=== PATIENT | female | born 1955 | race African-American/Black ===

== ENCOUNTER 2017-03-22 08:13 | Inpatient (IN) ==
[2017-03-22] MEDS ORDERED: ONDANSETRON 4 MG/2 ML VIAL IV STA (08:38)
[2017-03-22] MEDS ORDERED: HYDROmorphone 2 MG/1 ML VIAL IV STA (08:38)
[2017-03-22] MEDS ORDERED: ONDANSETRON 4 MG/2 ML VIAL ONE (08:48)
[2017-03-22] MEDS ORDERED: HYDROmorphone 2 MG/1 ML VIAL ONE (08:48)
[2017-03-22 09:26] LABS: Basophils # 0.1 10*3/uL (0.0-0.2); Basophils % 0.8 % (0.0-0.8); Eosinophils # 0.1 10*3/uL (0.0-0.87); Eosinophils % 0.8 % (0.00-10.9); Hematocrit 33.3 VOL% (35.7-47.0); Hemoglobin 11.4 GM/DL (12.0-16.0); Immature Granulocytes % 0.3 %; Immature Granulocytes Absolute 0.02 #; Lymphocytes # 0.8 10*3/uL (1.4-4.0); Lymphocytes % 12.9 % (21.3-54.2); Mean Corpuscular HGB Conc 34.2 GM/DL (32-36); Mean Corpuscular Hemoglobin 28 PG (27-34); Monocytes # 0.4 10*3/uL (0.11-0.8); Monocytes % 7.2 % (1.7-12.7); Neutrophils # 4.8 10*3/uL (1.4-7.4); Platelet Count 246 T/CUMM (130-400); Red Blood Count 4.01 MC/CUMM (3.8-5.5); Red Cell Distribution Width 15.6 % (9.3-17.3); White Blood Count 6.1 T/CUMM (4-12)
[2017-03-22 09:43] LABS: Lactic Acid 1.3 MMOL/L (0.4-2.0)
[2017-03-22 09:48] LABS: Apearance,Urine CLOUDY (Clear); Bacteria,Urine Occasional /HPF (Few); Bilirubin,Urine Negative (Negative); Blood, Urine Moderate mg/dL (Negative); Glucose,Urine (UA) 50 mg/dL (Negative); Ketones,Urine 5 mg/dL (Negative); Mucus,Urine Occasional /LPF (Occasional); Nitrite,Urine Negative (Negative); Protein,Urine >=500 MG/DL; RBC,Urine 25842 /HPF (0-4); Squamous Epithelial Cell,Urine Occasional /HPF (0-10); Urine Color Red (Yellow); Urine Specific Gravity 1.014 (1.001-1.035); Urine Urobilinogen < 2.0 EU/DL (0.2-1.0); WBC,Urine 133 /HPF (0-6)
[2017-03-22 10:01] LABS: Albumin 3.5 G/DL (3.4-5.0); Bilirubin,Total 0.4 MG/DL (0.2-1.0); Calcium 8.9 MG/DL (8.5-10.1); Osmolality,Calculated 280.5 MOS/KG (273-304); Potassium 3.5 MMOL/L (3.5-5.1); Total Protein 7.8 G/DL (6.4-8.3)
[2017-03-22] MEDS ORDERED: MORPHINE 2 MG/1 ML SYRINGE IV PRN (12:08)
[2017-03-22] MEDS ORDERED: ONDANSETRON 4 MG/2 ML VIAL IV PRN (12:08)
[2017-03-22] MEDS ORDERED: diphenhydrAMINE CAP 25 MG CAPSULE PO PRN (12:08)
[2017-03-22] MEDS ORDERED: DOCUSATE SODIUM 100 MG CAPSULE PO PRN (12:08)
[2017-03-22] MEDS ORDERED: PROMETHAZINE 25 MG/1 ML VIAL IM PRN (12:08)
[2017-03-22] MEDS ORDERED: guaiFENesin/DM ER 600-30 MG TABLET PO PRN (12:08)
[2017-03-22] MEDS ORDERED: ACETAMINOPHEN 325 MG TABLET PO PRN ×2 (12:08)
[2017-03-22] MEDS ORDERED: ALBUTEROL 0.63 MG/3 ML NEB RESP TX PRN (13:31)
[2017-03-22] MEDS: SODIUM CHLORIDE 0.9% 1,000 ML IV SCH ×2 (13:46→21:53)
[2017-03-22] MEDS: cefTRIAXone 1,000 MG in SYRINGE 1 EACH IV SCH (13:49)
[2017-03-22] MEDS: PANTOPRAZOLE 40 MG TABLET PO SCH (13:49)
[2017-03-22] MEDS: guaiFENesin/DM ER 600-30 MG TABLET PO SCH ×2 (13:49→21:24)
[2017-03-22 15:01] LABS: Hematocrit 31.9 VOL% (35.7-47.0); Hemoglobin 10.8 GM/DL (12.0-16.0)
[2017-03-22 16:56] LABS: Cancer Antigen 19-9 4.8 U/ML (0-37); Carcinoembryonic Antigen < 0.5 NG/ML (0.0-5.0)
[2017-03-22 19:20] LABS: Hematocrit 29.3 VOL% (35.7-47.0); Hemoglobin 10.1 GM/DL (12.0-16.0)
[2017-03-22] MEDS: BELLADONNA/OPIUM 30 MG SUPP RECTAL SCH (21:24)
[2017-03-23] MEDS: SODIUM CHLORIDE 0.9% 1,000 ML IV SCH (04:57)
[2017-03-23 05:21] LABS: Basophils # 0.1 10*3/uL (0.0-0.2); Eosinophils # 0.2 10*3/uL (0.0-0.87); Eosinophils % 3.9 % (0.00-10.9); Hematocrit 29.8 VOL% (35.7-47.0); Hemoglobin 10.2 GM/DL (12.0-16.0); Immature Granulocytes % 0.2 %; Immature Granulocytes Absolute 0.01 #; Lymphocytes # 1.6 10*3/uL (1.4-4.0); Lymphocytes % 26.5 % (21.3-54.2); Mean Corpuscular HGB Conc 34.2 GM/DL (32-36); Mean Corpuscular Hemoglobin 29 PG (27-34); Mean Corpuscular Volume 83.9 FL (87-102); Mean Platelet Volume 10.6 FL (9.6-12.0); Monocytes # 0.6 10*3/uL (0.11-0.8); Monocytes % 9.4 % (1.7-12.7); Neutrophils # 3.5 10*3/uL (1.4-7.4); Platelet Count 223 T/CUMM (130-400); Red Blood Count 3.55 MC/CUMM (3.8-5.5); Red Cell Distribution Width 15.6 % (9.3-17.3); White Blood Count 5.9 T/CUMM (4-12)
[2017-03-23 05:46] LABS: Calcium 8.1 MG/DL (8.5-10.1); Magnesium 2.1 MG/DL (1.8-2.4); Osmolality,Calculated 281.3 MOS/KG (273-304); Potassium 4.4 MMOL/L (3.5-5.1)
[2017-03-23] MEDS: guaiFENesin/DM ER 600-30 MG TABLET PO SCH ×2 (08:50→21:14)
[2017-03-23] MEDS: PANTOPRAZOLE 40 MG TABLET PO SCH (08:50)
[2017-03-23] MEDS: BELLADONNA/OPIUM 30 MG SUPP RECTAL SCH ×2 (08:50→21:14)
[2017-03-23 12:25] LABS: PT Patient Result 10.1 SECS
[2017-03-23] MEDS: CETIRIZINE 10 MG TABLET PO SCH (12:37)
[2017-03-23] MEDS: FLUTICASONE 50 MCG NASAL SPRAY 16 GM BOTTLE BOTH NARES SCH ×2 (12:37→21:14)
[2017-03-23] MEDS: cefTRIAXone 1,000 MG in SYRINGE 1 EACH IV SCH (12:37)
[2017-03-23] MEDS: HEPARIN LOCK FLUSH 500 UNIT/5 ML SYRINGE IV PRN (18:30)
[2017-03-24 04:01] LABS: Basophils % 0.6 % (0.0-0.8); Eosinophils # 0.3 10*3/uL (0.0-0.87); Eosinophils % 4.5 % (0.00-10.9); Hematocrit 30.2 VOL% (35.7-47.0); Hemoglobin 10.2 GM/DL (12.0-16.0); Immature Granulocytes % 0.2 %; Immature Granulocytes Absolute 0.01 #; Lymphocytes # 1.8 10*3/uL (1.4-4.0); Lymphocytes % 27.2 % (21.3-54.2); Mean Corpuscular HGB Conc 33.8 GM/DL (32-36); Mean Corpuscular Hemoglobin 28 PG (27-34); Mean Corpuscular Volume 83.4 FL (87-102); Mean Platelet Volume 10.6 FL (9.6-12.0); Monocytes # 0.6 10*3/uL (0.11-0.8); Monocytes % 9.3 % (1.7-12.7); Neutrophils # 3.9 10*3/uL (1.4-7.4); Neutrophils % 58.2 % (38.7-73.9); Platelet Count 248 T/CUMM (130-400); Red Blood Count 3.62 MC/CUMM (3.8-5.5); Red Cell Distribution Width 15.6 % (9.3-17.3); White Blood Count 6.7 T/CUMM (4-12)
[2017-03-24 04:13] LABS: PT Patient Result 10.4 SECS; Partial Thromboplastin Time 27.1 SECS (0-40)
[2017-03-24 04:44] LABS: % Iron Saturation 13.5 % (18-50); Ferritin 184.1 ng/ml (8-252)
[2017-03-24] MEDS: guaiFENesin/DM ER 600-30 MG TABLET PO SCH ×2 (10:01→21:21)
[2017-03-24] MEDS: FLUTICASONE 50 MCG NASAL SPRAY 16 GM BOTTLE BOTH NARES SCH ×2 (10:02→21:21)
[2017-03-24] MEDS: PANTOPRAZOLE 40 MG TABLET PO SCH (10:02)
[2017-03-24] MEDS: CETIRIZINE 10 MG TABLET PO SCH (10:02)
[2017-03-24] MEDS: BELLADONNA/OPIUM 30 MG SUPP RECTAL SCH (10:02)
[2017-03-24] MEDS ORDERED: DIAZEPAM 5 MG TABLET PO ONE (10:42)
[2017-03-25 10:01] LABS: Basophils % 0.6 % (0.0-0.8); Eosinophils # 0.3 10*3/uL (0.0-0.87); Hematocrit 30.6 VOL% (35.7-47.0); Hemoglobin 10.5 GM/DL (12.0-16.0); Immature Granulocytes % 0.6 %; Immature Granulocytes Absolute 0.04 #; Lymphocytes # 1.4 10*3/uL (1.4-4.0); Lymphocytes % 19.9 % (21.3-54.2); Mean Corpuscular HGB Conc 34.3 GM/DL (32-36); Mean Corpuscular Hemoglobin 28 PG (27-34); Mean Corpuscular Volume 82.7 FL (87-102); Mean Platelet Volume 10.5 FL (9.6-12.0); Monocytes # 0.6 10*3/uL (0.11-0.8); Monocytes % 9.3 % (1.7-12.7); Neutrophils # 4.5 10*3/uL (1.4-7.4); Neutrophils % 65.6 % (38.7-73.9); Platelet Count 265 T/CUMM (130-400); Red Cell Distribution Width 15.5 % (9.3-17.3); White Blood Count 6.8 T/CUMM (4-12)
[2017-03-25] MEDS: FLUTICASONE 50 MCG NASAL SPRAY 16 GM BOTTLE BOTH NARES SCH (10:32)
[2017-03-25] MEDS: PANTOPRAZOLE 40 MG TABLET PO SCH (10:32)
[2017-03-25] MEDS: CETIRIZINE 10 MG TABLET PO SCH (10:32)
[2017-03-25] MEDS: guaiFENesin/DM ER 600-30 MG TABLET PO SCH (10:32)
[2017-03-25] MEDS: HEPARIN LOCK FLUSH 500 UNIT/5 ML SYRINGE IV PRN (12:42)
[2017-03-25 13:13] VITALS: BP 146/72
== END 2017-03-25 14:00 | disposition home or self-care (01) | DRG 468 ==
LOC: EDBD → EDUNIT# → N.ED 08:13 → N.EDINP 11:44 → N.4E 13:07
PROVIDERS: ADMIT Internal Medicine; ATTEND Internal Medicine

== ENCOUNTER 2017-06-28 19:16 | Inpatient (IN) ==
[2017-06-28] MEDS ORDERED: SODIUM CHLORIDE 0.9% 500 ML IV STA (20:11)
[2017-06-28 21:19] LABS: Basophils % 0.1 % (0.0-0.8); Eosinophils % 0.3 % (0.00-10.9); Hematocrit 25.9 VOL% (35.7-47.0); Hemoglobin 8.2 GM/DL (12.0-16.0); Immature Granulocytes % 0.8 %; Immature Granulocytes Absolute 0.12 #; Lymphocytes # 0.9 10*3/uL (1.4-4.0); Lymphocytes % 6.2 % (21.3-54.2); Mean Corpuscular HGB Conc 31.7 GM/DL (32-36); Mean Corpuscular Hemoglobin 26 PG (27-34); Mean Corpuscular Volume 83.3 FL (87-102); Mean Platelet Volume 10.6 FL (9.6-12.0); Monocytes # 1.1 10*3/uL (0.11-0.8); Monocytes % 7.2 % (1.7-12.7); Neutrophils # 12.6 10*3/uL (1.4-7.4); Neutrophils % 85.4 % (38.7-73.9); Platelet Count 194 T/CUMM (130-400); Red Blood Count 3.11 MC/CUMM (3.8-5.5); Red Cell Distribution Width 21.6 % (9.3-17.3); White Blood Count 14.7 T/CUMM (4-12)
[2017-06-28 21:42] LABS: Albumin 1.8 G/DL (3.4-5.0); Bilirubin,Total 0.6 MG/DL (0.2-1.0); Calcium 7.7 MG/DL (8.5-10.1); Osmolality,Calculated 309.1 MOS/KG (273-304); Total Protein 6.5 G/DL (6.4-8.3)
[2017-06-28 22:13] LABS: Apearance,Urine CLOUDY (Clear); Bilirubin,Urine Negative (Negative); Blood, Urine Moderate mg/dL (Negative); Glucose,Urine (UA) 50 mg/dL (Negative); Ketones,Urine Negative (Negative); Nitrite,Urine Negative (Negative); Protein,Urine 100 MG/DL; RBC,Urine 2489 /HPF (0-4); Urine Specific Gravity 1.014 (1.001-1.035); Urine Urobilinogen < 2.0 EU/DL (0.2-1.0)
[2017-06-28 22:16] LABS: Squamous Epithelial Cell,Urine Occasional /HPF (0-10); Urine Color Red (Yellow)
[2017-06-28 22:17] LABS: Amorphous Crystals,Urine Occasional /HPF (Few); Bacteria,Urine Occasional /HPF (Few)
[2017-06-29] MEDS ORDERED: ALBUTEROL 2.5 MG/3 ML NEB RESP TX PRN (01:08)
[2017-06-29] MEDS: SODIUM CHLORIDE 0.9% 1,000 ML IV SCH ×2 (01:50→15:40)
[2017-06-29] MEDS ORDERED: LEVOFLOXACIN INJ 750 MG in PREMIX 1 EACH IV ONE (02:00)
[2017-06-29 05:45] LABS: Basophils % 0.1 % (0.0-0.8); Eosinophils % 0.3 % (0.00-10.9); Hemoglobin 8.1 GM/DL (12.0-16.0); Immature Granulocytes % 0.7 %; Immature Granulocytes Absolute 0.09 #; Lymphocytes # 0.9 10*3/uL (1.4-4.0); Lymphocytes % 6.4 % (21.3-54.2); Mean Corpuscular HGB Conc 31.2 GM/DL (32-36); Mean Corpuscular Hemoglobin 26 PG (27-34); Mean Corpuscular Volume 83.3 FL (87-102); Mean Platelet Volume 10.4 FL (9.6-12.0); Monocytes # 0.9 10*3/uL (0.11-0.8); Neutrophils # 11.4 10*3/uL (1.4-7.4); Neutrophils % 85.5 % (38.7-73.9); Platelet Count 187 T/CUMM (130-400); Red Blood Count 3.12 MC/CUMM (3.8-5.5); Red Cell Distribution Width 21.6 % (9.3-17.3); White Blood Count 13.4 T/CUMM (4-12)
[2017-06-29 06:12] LABS: Calcium 7.8 MG/DL (8.5-10.1); Magnesium 2.5 MG/DL (1.8-2.4); Potassium 4.9 MMOL/L (3.5-5.1)
[2017-06-29 06:23] LABS: Band Neutrophils 43 % (0-10); Eosinophils 1 % (0-10); Lymphocytes 8 % (20-55); Nucleated Red Blood Cells 1 (0-5); Segmented Neutrophils 45 % (50-85); Total Cells Counted 100
[2017-06-29 06:24] LABS: Anisocytosis 1+; Target Cells 1+
[2017-06-29] MEDS: ALBUTEROL/IPRATROPIUM 3 ML NEB RESP TX SCH ×3 (08:05→19:39)
[2017-06-29] MEDS ORDERED: INFLUENZA VIRUS VACCINE 0.5 ML SYRINGE IM ONE (17:24)
[2017-06-29 19:40] LABS: Apearance,Urine CLOUDY (Clear); Bilirubin,Urine Negative (Negative); Blood, Urine Large mg/dL (Negative); Glucose,Urine (UA) 50 mg/dL (Negative); Ketones,Urine 20 mg/dL (Negative); Nitrite,Urine Negative (Negative); Protein,Urine >=500 MG/DL; RBC,Urine 81500 /HPF (0-4); Urine Specific Gravity 1.024 (1.001-1.035); Urine Urobilinogen < 2.0 EU/DL (0.2-1.0); WBC,Urine 68 /HPF (0-6)
[2017-06-29 19:44] LABS: Urine Color Dark Red (Yellow)
[2017-06-29] MEDS ORDERED: ENOXAPARIN 30 MG/0.3 ML SYRINGE SUBCUT SCH (21:00)
[2017-06-30] MEDS: ALBUTEROL/IPRATROPIUM 3 ML NEB RESP TX SCH ×4 (00:52→20:16)
[2017-06-30] MEDS: SODIUM CHLORIDE 0.9% 1,000 ML IV SCH (05:29)
[2017-06-30] MEDS ORDERED: TUBERCULIN SKIN TEST 0.1 ML SYRINGE INTRADERM ONE (11:00)
[2017-06-30] MEDS ORDERED: ZINC OXIDE PASTE 113 GM TUBE TOP PRN (15:40)
[2017-06-30] MEDS: MORPHINE 2 MG/1 ML SYRINGE IM PRN (21:35)
[2017-07-01] MEDS: ALBUTEROL/IPRATROPIUM 3 ML NEB RESP TX SCH ×4 (00:09→19:25)
[2017-07-01] MEDS ORDERED: LEVOFLOXACIN INJ 500 MG in PREMIX 1 EACH IV SCH (02:30)
[2017-07-01] MEDS: MORPHINE 2 MG/1 ML SYRINGE IM PRN ×5 (06:31→13:44)
[2017-07-01] MEDS: ONDANSETRON 4 MG/2 ML VIAL IV PRN ×2 (07:50→11:10)
[2017-07-01] MEDS: LORazepam 2 MG/1 ML VIAL IV PRN ×2 (13:45→17:48)
[2017-07-01] MEDS: MORPHINE 2 MG/1 ML SYRINGE IV PRN ×2 (16:30→17:47)
[2017-07-02] MEDS: ALBUTEROL/IPRATROPIUM 3 ML NEB RESP TX SCH ×2 (00:30→07:23)
[2017-07-02 03:47] VITALS: BP 69/26
== END 2017-07-02 05:45 | disposition expired | DRG 720 ==
LOC: EDBD → EDUNIT# → N.ED 19:16 → SUATTDRO 06-29 → N.EDINP 06-29 → N.5E 06-29 00:24
PROVIDERS: ADMIT Internal Medicine Infectious Disease; ATTEND Internal Medicine